=== PATIENT | female | born 1995 | race American Indian/Alaskan Native ===

== ENCOUNTER 2022-06-12 20:32 | Emergency (ER) | payer OTHER, SELFPAY ==
[2022-06-12 20:38] VITALS: BP 112/73; PULSE 84; RESP 18; TEMP 36.8; O2SAT 99; BMI 27.5
--- NOTE | 2022-06-12 20:53 | ED.GENADULT ---
HPI - General Adult General Date Seen: 06/12/22 Chief complaint: Nose Injury/Pain Stated complaint: nose injury Time Seen by Provider: 06/12/22 20:42 Source: patient History of Present Illness HPI narrative: Patient is a 27-year-old who is here for evaluation of her nose. Earlier today while at work she was struck in the left side of the nose with a tire iron. She had a little bit of bleeding inside the nose although no gushing of blood. There is a little bit of swelling, minimal pain. She says she wanted to get it checked out now in case anything happened later so that she was not liable. No other injuries or complaints. General health is good. Related Data Home Medications Medication Instructions Recorded Confirmed No Known Home Medications 06/12/22 06/12/22 Allergies Allergy/AdvReac Type Severity Reaction Status Date / Time No Known Drug Allergies Allergy Verified 06/12/22 20:42 [facility] Medical History (Updated 06/12/22 @ 20:51 by Miranda Tyler MD) No significant past medical history Surgical History (Updated 06/12/22 @ 20:44 by Kyle Joel RN) No significant past surgical history Social History Smoking Status: Never smoker Do you use any of these nicotine containing products: None Second hand tobacco smoke exposure: No How often do you have a drink containing alcohol: never How often do you have six or more drinks on one occasion: Never AUDIT-C Alcohol total score: 0 Non-prescribed substance use: denies use Exam Narrative: Exam Narrative: Vital signs reviewed In general, an alert, well-appearing young woman. Head: Normocephalic. Eyes: Sclera clear. Pupils are equal reactive. Extraocular movements are full. ENT: She has minor swelling and contusion noted to the left side of the nose with a couple of small abrasions. No lacerations requiring repair. No significant tenderness over the bridge of the nose. Nares are clear without hemorrhage, no septal hematoma. Oropharynx is normal. No other facial trauma. Neck: Supple. Skin: Warm and dry, well perfused Const: Vital Signs, click to edit/add: Vital Signs - 24 hr 06/12/22 20:38 Temperature 98.2 F Pulse Rate [Right Pulse Oximeter] 84 Respiratory Rate 18 Blood Pressure [Ri ght Upper Arm] 112/73 Pulse Oximetry 99 Oxygen Delivery Me thod Room Air Documenting provider has reviewed patient's vital signs: yes Course Course Hospital Course: Discussed with patient based on that the exam at this time I doubt a nasal fracture or significant deformity. Septum appears intact. However, if as the swelling goes down she notes deformity, she can follow up with ENT. In the mean time, would recommend ice, ibuprofen and/or Tylenol. I do not see evidence of any other more significant facial trauma, fracture, ocular or dental trauma. Vital Signs Vital signs: Initial Vital Signs Temperature 98.2 F 06/12/22 20:38 Temperature Source Temporal Artery Scan 06/12/22 20:38 Pulse Rate 84 06/12/22 20:38 Respiratory Rate 18 06/12/22 20:38 Blood Pressure 112/73 06/12/22 20:38 Blood Pressure Mean 86 06/12/22 20:38 Blood Pressure Position Sitting 06/12/22 20:38 Pulse Oximetry 99 06/12/22 20:38 Oxygen Delivery Method 06/12/22 20:38 Vital Signs Temperature 98.2 F 06/12/22 20:38 Pulse Rate 84 06/12/22 20:38 Respiratory Rate 18 06/12/22 20:38 Blood Pressure 112/73 06/12/22 20:38 Pulse Oximetry 99 06/12/22 20:38 Oxygen Delivery Method 06/12/22 20:38 Temperature 98.2 F 06/12/22 20:38 Pulse Rate 84 06/12/22 20:38 Respiratory Rate 18 06/12/22 20:38 Blood Pressure 112/73 06/12/22 20:38 Pulse Oximetry 99 06/12/22 20:38 Oxygen Delivery Method 06/12/22 20:38 Discharge Plan Discharge Clinical Impression: Nasal contusion Patient Disposition: Home, Self-Care Condition: Stable Instructions: Nasal Contusion (ED) Additional Instructions: Ibuprofen or Tylenol if needed. Ice. If you note deformity after swelling is resolved, follow-up with ENT. [phone] to schedule if needed. Prescriptions: No Action No Known Home Medications Stand Alone Forms: MyHealth Info Instructions
[2022-06-12 21:07] VITALS: BP 115/68; PULSE 79; RESP 18; TEMP 36.6; O2SAT 99
[2022-06-12 21:08] VITALS: BP 115/68; PULSE 79; RESP 18; TEMP 36.6
== END 2022-06-12 21:08 | disposition home or self-care (01) ==
LOC: ED 21:02
PROVIDERS: Emergency Provider Emergency Medicine
DX: S00.33XA Contusion of nose, initial encounter (principal); W22.8XXA Striking against or struck by other objects, initial encounter; Y99.0 Civilian activity done for income or pay
CPT/HCPCS: 99282; 99283; 99284